=== PATIENT | male | born 1955 ===

== ENCOUNTER → 2024-09-05 09:16 | Outpatient (BNVA) | payer MEDICARE, BC, SELFPAY | PROVIDERS: Family Provider Physician Assistant; PCP Physician Assistant; Referring Provider Physician Assistant; Visit Provider Psychiatry & Neurology Neurology | DX: R41.3 Other amnesia (principal); R56.9 Unspecified convulsions; R29.818 Other symptoms and signs involving the nervous system; E53.8 Deficiency of other specified B group vitamins; E55.9 Vitamin D deficiency, unspecified; G91.2 (Idiopathic) normal pressure hydrocephalus | CPT/HCPCS: 0346U; 36415; 82306; 82542; 82607; 82746; 83520; 83735; 83921; 86592; 99203 ==

== ENCOUNTER → 2024-10-01 15:11 | Outpatient (BNVA) | payer MEDICARE, BC, SELFPAY | PROVIDERS: Family Provider Physician Assistant; PCP Physician Assistant; Referring Provider Psychiatry & Neurology Neurology; Visit Provider Psychiatry & Neurology Neurology | DX: R56.9 Unspecified convulsions (principal) | CPT/HCPCS: 95813 ==

== ENCOUNTER 2024-11-15 13:27 | Outpatient (CLI) | payer MEDICARE, BC, SELFPAY ==
--- NOTE | 2024-11-15 13:30 | USCV_ITS ---
Anuel Davis Age: 69 Gender: M : 1955 Exam Date: 11/15/2024 13:55 Ordering Phys: Oh Mack MD Technologist: [facility] Exam Location: [facility] [place] Indication: stenosis Risk Factors: Previous Vascular Surgery: Right Brachial BP: / Left Brachial BP: / Right Left Velocity (cm/s) Spectral Plaque Velocity (cm/s) Spectral Plaque Syst/Diast Broadening Syst/Diast Broadening 70.70/ 13.70 Prox CCA 81.30 / 12.80 105.90/20.90 Mid CCA 66.50 / 12.80 75.50/ 17.90 Distal CCA 57.20 / 13.40 60.80/ 10.70 Prox ICA 44.70 / 13.20 52.00/ 14.50 Mid ICA 52.50 / 15.40 49.30/ 14.30 Distal ICA 56.00 / 19.90 62.50 ECA 60.70 0.80 ICA/CCA 1.00 Antegrade Vertebral Antegrade 50.10/ 9.10 cm/s 40.90/ 11.80 cm/s Tri Subclavian Tri 75.80 97.60 CONCLUSIONS Right ICA stenosis <50%. Moderate atheromatous plaque right carotid bulb/ICA. Left ICA stenosis <50%. Moderate atheromatous plaque left carotid bulb/ICA. Normal antegrade Doppler flow noted in the right vertebral artery. Normal antegrade Doppler flow noted in the left vertebral artery. Mekhi Scales MD (Electronically Signed) Final Date: 17 Nov 2024 17:22 S
== END 2024-11-15 13:28 | disposition home or self-care (01) ==
PROVIDERS: Family Provider Physician Assistant; PCP Physician Assistant; Visit Provider Psychiatry & Neurology Neurology
DX: R41.3 Other amnesia (principal); R26.89 Other abnormalities of gait and mobility; I65.23 Occlusion and stenosis of bilateral carotid arteries
CPT/HCPCS: 93880

== ENCOUNTER → 2025-01-09 09:44 | Outpatient (BNVA) | payer MEDICARE, BC, SELFPAY | PROVIDERS: Family Provider Physician Assistant; PCP Physician Assistant; Visit Provider Psychiatry & Neurology Neurology | DX: R29.818 Other symptoms and signs involving the nervous system (principal); R41.3 Other amnesia; G91.2 (Idiopathic) normal pressure hydrocephalus | CPT/HCPCS: 99212 ==

== ENCOUNTER → 2025-02-04 15:20 | Outpatient (BNVA) | payer MEDICARE, BC, SELFPAY | PROVIDERS: Family Provider Physician Assistant; PCP Physician Assistant; Referring Provider Psychiatry & Neurology Neurology; Visit Provider Psychiatry & Neurology Neurology | DX: R94.01 Abnormal electroencephalogram [EEG] (principal); R29.818 Other symptoms and signs involving the nervous system; R41.3 Other amnesia | CPT/HCPCS: 95816 ==

== ENCOUNTER → 2025-02-28 12:51 | Outpatient (BNVA) | payer MEDICARE, BC, SELFPAY | PROVIDERS: Family Provider Physician Assistant; PCP Physician Assistant; Referring Provider Psychiatry & Neurology Neurology; Visit Provider Nurse Practitioner | DX: R94.01 Abnormal electroencephalogram [EEG] (principal); R29.818 Other symptoms and signs involving the nervous system | CPT/HCPCS: 99213 ==